=== PATIENT | female | born 1970 ===

== ENCOUNTER → 2022-10-23 10:13 | Outpatient (CLI) | payer OTHER, SELFPAY ==
--- NOTE | ~2022-10-23 | MR_ITS ---
MRI of the lumbar spine Clinical History: Anterolisthesis Technique: Axial T2-weighted images, and sagittal T1-weighted, T2-weighted, and T2 fat-sat images wer e acquired. Findings: There are probable bilateral L5 pars interarticularis defects, with 6 mm anterolisthesis of L5 over S1. No acute fracture evident. No suspicious bone marrow signal abnormality seen. At L1-L2, there is no disc bulge or herniation. There is minimal facet joint arthropathy. No central canal stenosis or neural foraminal narrowing. At L2-L3, there is moderate to severe degenerative disc narrowing, with minimal bulge. There is mild to moderate facet arthropathy. No central canal stenosis or neural foraminal narrowing. At L3-L4, there is no disc bulge or herniation. There is mild to moderate facet arthropathy. No centr al canal stenosis or neural foraminal narrowing. At L4-L5, there is no disc bulge or herniation. No spinal canal stenosis or neural foraminal narrowin g. At L5-S1, there is disc bulge/uncovering with severe facet arthropathy. No central canal stenosis. Th ere is severe bilateral neural foraminal narrowing. Paravertebral soft tissues are unremarkable. Impression: Bilateral L5 pars interarticularis defects, with 6 mm anterolisthesis of L5 over S1. Advanced degenerative spondylosis at L5-S1, as detailed above. Mild degenerative changes in the remainder of the lumbar spine. Reviewed, dictated and finalized at [facility]. Impression: Bilateral L5 pars interarticularis defects, with 6 mm anterolisthesis of L5 ove r S1. Advanced degenerative spondylosis at L5-S1, as detailed above. Mild degenerative changes in the remainder of the lumbar spine.
== END ==
PROVIDERS: PCP Pain Medicine Pain Medicine; Visit Provider Family Medicine
DX: M43.17 Spondylolisthesis, lumbosacral region (principal); M47.817 Spondylosis without myelopathy or radiculopathy, lumbosacral region
CPT/HCPCS: 72148